=== PATIENT | male | born 1995 | race Caucasian/White ===

== ENCOUNTER 2018-10-18 12:57 | Emergency (ER) | payer MEDICAID ==
[~2018-10-18] VITALS: Ht 180.3 cm; Wt 80.0 kg
[2018-10-18 13:26] VITALS: BP 113/69
== END 2018-10-18 23:21 | disposition left against medical advice (07) ==
LOC: ER 12:57
DX: K62.89 Other specified diseases of anus and rectum (principal); Z53.21 Procedure and treatment not carried out due to patient leaving prior to being seen by health care provider